=== PATIENT | female | born 1970 | race Caucasian/White ===

== ENCOUNTER 2017-08-21 08:22 | Day surgery (SDC) | payer BC ==
[~2017-08-21 08:22] MED LIST: Buffered Lidocaine 0.9% SYRIN* 5 ML/SYR SYRINGE INTRADERM ONE
[2017-08-21] MEDS ORDERED: Clindamycin 900 MG IVPREMIX(* 900 MG/50 ML SDV IV ONE (08:33)
[2017-08-21] MEDS ORDERED: Lidocaine 1% MPF wEPI 200,000* 30 ML SDV ONE (10:59)
[2017-08-21] MEDS ORDERED: Bupivacaine 0.25% SDV* 30 ML ONE (10:59)
[2017-08-21] MEDS ORDERED: fentaNYL* 50 MCG/ML 2 ML VIAL (100 MCG VIAL) ONE ×2 (11:08→11:35)
[2017-08-21] MEDS ORDERED: Midazolam* 1 MG/ML 5 ML VIAL (5 MG) ONE (11:08)
[2017-08-21] MEDS ORDERED: Propofol* 10 MG/ML 20 ML BTL IV PUSH ONE ×2 (11:18→11:37)
[2017-08-21 12:25] VITALS: BP 132/71
== END 2017-08-21 12:20 | disposition home or self-care (01) ==
LOC: OREAST 08:22
PROVIDERS: ATTEND Plastic Surgery
DX: D17.1 Benign lipomatous neoplasm of skin and subcutaneous tissue of trunk (principal); I10 Essential (primary) hypertension; G47.33 Obstructive sleep apnea (adult) (pediatric); E66.9 Obesity, unspecified; F32.9 Major depressive disorder, single episode, unspecified; R00.2 Palpitations; R06.02 Shortness of breath
CPT/HCPCS: 88304; J2001; J2250; J2704; J3010

== ENCOUNTER 2017-12-11 08:28 | Day surgery (SDC) | payer BC ==
[~2017-12-11 08:28] MED LIST changes: +Dexamethasone IV* 4 MG/ML 1 ML (4 MG) IV SLOW PU ONE; +Famotidine IV* 10 MG/ML 2 ML (20 mg) IV ONE
[2017-12-11] MEDS ORDERED: Famotidine IV* 10 MG/ML 2 ML (20 mg) ONE (09:04)
[2017-12-11] MEDS ORDERED: Dexamethasone IV* 4 MG/ML 1 ML (4 MG) ONE (09:04)
[2017-12-11] MEDS ORDERED: Midazolam* 1 MG/ML 2 ML VIAL (2 MG) ONE (09:50)
[2017-12-11] MEDS ORDERED: fentaNYL* 50 MCG/ML 2 ML VIAL (100 MCG VIAL) ONE (09:50)
[2017-12-11] MEDS ORDERED: Lidocaine 1% MPF wEPI 200,000* 30 ML SDV ONE (09:54)
[2017-12-11] MEDS ORDERED: Silver Nitrate/Potassium Nitr* 1 EA STICK ONE (10:34)
[2017-12-11] MEDS ORDERED: Propofol* 10 MG/ML 20 ML BTL IV PUSH ONE (10:36)
[2017-12-11] MEDS ORDERED: Ondansetron INJ* 2 MG/ML VIAL ONE (10:36)
[2017-12-11] MEDS ORDERED: Ketorolac INJ* 30 MG/ML 1 ML VIAL ONE (10:36)
[2017-12-11] MEDS ORDERED: fentaNYL* 50 MCG/ML 2 ML VIAL (100 MCG VIAL) IV PRN (10:38)
[2017-12-11] MEDS ORDERED: Naloxone* 0.4 MG/ML 1 ML VIAL IV PRN (10:38)
[2017-12-11] MEDS ORDERED: DiMENhydriNATE IV* 50 MG/ML VIAL IV PUSH PRN (10:38)
[2017-12-11] MEDS ORDERED: Bacitracin OINTMENT* 0.5% 0.5 oz TUBE ONE (10:42)
[2017-12-11 12:32] VITALS: BP 133/65
--- NOTE | 2017-12-11 23:07 | OP ---
DATE OF OPERATION: 12/11/17 - [facility] DATE OF : 74 SURGEON: Rigoberto Grace M.D. CLINICAL REHABILITATION LIAISON: None. PRE-OP DIAGNOSES: Left vulvar mass and skin tags. POST-OP DIAGNOSES: Left vulvar mass, palpable lipoma. OPERATIVE PROCEDURE: Excision of left vulvar mass and removal of skin tags. ESTIMATED BLOOD LOSS: Minimal. FINDINGS: On exam under anesthesia, the vulva contained a fatty soft mass approximately 3 x 4 cm, initially deep in the vulvar skin. There were two small skin tags, one on the clitoris and one on the right labia minora. DESCRIPTION OF PROCEDURE: The patient identified, procedure identified as an excision of vulvar mass. The patient was taken to the operating room, prepped and draped in usual fashion in the dorsal lithotomy position under general anesthesia. The Metzenbaum scissors were used to excise the two skin tags. These were cauterized using silver nitrate and the Bovie. Because there was some still bleeding on the right labia, a 3-0 Polysorb was used to suture ligate this skin removal area. Attention was turned to the lipoma. The lipoma was punched up and brought as close to the skin as possible. An incision was made on the left labia majora and carried down until the mass could be identified. This was extruded using pressure and blunt dissection until the whole mass had been brought down to the base. The blood vessels were identified and cauterized using the hemostat and then the rest of the lipoma was excised. The space was closed using 3-0 Polysorb with good hemostasis and the skin was closed with skin glue. All sponge and instrument counts were correct and the patient returned to the recovery room in stable condition. Bacitracin was placed over the areas of excision. [id number]/[facility] #: [id number] [facility]ENTERGallo
== END 2017-12-11 12:32 | disposition home or self-care (01) ==
LOC: OR 08:28
PROVIDERS: ATTEND Obstetrics & Gynecology
DX: D17.79 Benign lipomatous neoplasm of other sites (principal); N90.89 Other specified noninflammatory disorders of vulva and perineum; G47.33 Obstructive sleep apnea (adult) (pediatric); I10 Essential (primary) hypertension; Z87.891 Personal history of nicotine dependence; K21.9 Gastro-esophageal reflux disease without esophagitis; Z68.38 Body mass index [BMI] 38.0-38.9, adult
CPT/HCPCS: 88304; A9270-GY; J1100; J1885; J2001; J2250; J2405; J2704; J3010